=== PATIENT | female | born 1990 | race Two or more races ===

== ENCOUNTER 2024-11-04 22:22 | Emergency (ER) | payer OTHER ==
[~2024-11-04] VITALS: Ht 157.5 cm; Wt 517.1 kg
[2024-11-04] MEDS ORDERED: KETOROLAC TROMETHAMINE 60 MG VIAL IM ONE (23:45)
[2024-11-05] MEDS ORDERED: KETOROLAC TROMETHAMINE 60 MG VIAL IM ONE
[2024-11-05] MEDS ORDERED: KETO10TA2 PO (02:49)
== END 2024-11-05 02:54 ==
LOC: ER 22:24
DX: S62.338A Displaced fracture of neck of other metacarpal bone, initial encounter for closed fracture (principal); X83.8XXA Intentional self-harm by other specified means, initial encounter; Y93.89 Activity, other specified; Y92.89 Other specified places as the place of occurrence of the external cause; Y99.8 Other external cause status